=== PATIENT | male | born 1965 | race Caucasian/White ===

== ENCOUNTER 2019-07-27 08:52 | Emergency (ER) | payer BC, OTHER ==
[~2019-07-27] VITALS: Ht 177.8 cm; Wt 86.3 kg
[2019-07-27 09:42] LABS: BASOPHILS % (AUTO) 1 % (0-10); EOSINOPHILS # (AUTO) 0.3 10^3/uL (0.0-0.3); EOSINOPHILS % (AUTO) 5 % (0-10); HEMATOCRIT 45 % (40-54); HEMOGLOBIN 15.8 G/DL (13.3-17.7); LYMPHOCYTES # (AUTO) 1.6 X 10^3 (1.0-4.0); LYMPHOCYTES % (AUTO) 28 % (12-44); MEAN CORPUSCULAR HEMOGLOBIN 32 PG (25-34); MEAN CORPUSCULAR HGB CONC 35 G/DL (32-36); MEAN CORPUSCULAR VOLUME 91 FL (80-99); MEAN PLATELET VOLUME 9.1 FL (7.4-10.4); MONOCYTES # (AUTO) 0.4 X 10^3 (0.0-1.0); MONOCYTES % (AUTO) 7 % (0-12); NEUTROPHILS # (AUTO) 3.4 X 10^3 (1.8-7.8); NEUTROPHILS % (AUTO) 60 % (42-75); PLATELET COUNT 218 10^3/uL (130-400); WHITE BLOOD COUNT 5.6 10^3/uL (4.3-11.0)
--- NOTE | 2019-07-27 09:48 | ED General ---
General Chief Complaint: Dizziness/Syncope Stated Complaint: DIZZINESS; NAUSEA Nursing Triage Note: Patient arrived by private vehicle with chief complaint of dizziness. Pt was alert, oriented and ambulatory at arrival (a little unsteady on his feet, but was able to walk to room 4). Pt was in the [employer] line and couldn't keep eyes open. Patient wanted to make sure he wasn't having a heart attack. Nursing Sepsis Screen: No Definite Risk History of Present Illness Date Seen by Provider: Jul 27, 2019 Time Seen by Provider: 09:43 Initial Comments 53-year-old male says he was sitting in his car when he had acute onset of dizziness says he was very sleepy and could barely keep his eyes open no vertigo he never had syncope but felt near syncopal he drove himself to the ER did have an unsteady gait into building no pain anywhere no focal weakness no prior such episodes has history of significant brain injury 6 years ago has never had a seizure Allergies and Home Medications Allergies Coded Allergies: Penicillins (Verified Allergy, Unknown, unknown, 07/27/19) Patient Home Medication List Home Medication List Reviewed: Yes Review of Systems Review of Systems Constitutional: dizziness; No fever EENTM: No hearing loss, No blurred vision, No nose congestion Respiratory: no symptoms reported Cardiovascular: no symptoms reported Gastrointestinal: no symptoms reported Genitourinary: no symptoms reported Musculoskeletal: no symptoms reported Skin: no symptoms reported Past Ojixzvx-Ozkbui-Hjwjaa Hx Patient Social History Alcohol Use: Denies Use Recreational Drug Use: No Smoking Status: Never a Smoker 2nd Hand Smoke Exposure: No Recent Foreign Travel: No Contact w/Someone Who Travel: No Recent Infectious Disease Expo: No Recent Hopitalizations: No Physical Abuse: No Sexual Abuse: No Mistreated: No Fear: No Seasonal Allergies Seasonal Allergies: No Past Medical History Surgeries: No Respiratory: No Cardiac: No Neurological: Yes Traumatic Brain Injury Genitourinary: No Gastrointestinal: No Musculoskeletal: Yes (2015 fell broken pelvis and ribs) Endocrine: No HEENT: No Cancer: No Psychosocial: No Integumentary: No Blood Disorders: No Physical Exam Vital Signs Vital Signs - First Documented 07/27/19 08:56 Temp 36.1 Pulse 96 Resp 18 B/P (MAP) 114/74 (87) Pulse Ox 97 O2 Delivery Room Air Capillary Refill : Less Than 3 Seconds Height, Weight, BMI Height: '" Weight: lbs. oz. kg; 27.00 BMI Method: General Appearance: No Apparent Distress, WD/WN Eyes: Bilateral Eye PERRL, Bilateral Eye EOMI HEENT: PERRL/EOMI, Other (no nystagmus) Neck: Supple; No Carotid Bruit Respiratory: Lungs Clear, Normal Breath Sounds Cardiovascular: Regular Rate, Rhythm Gastrointestinal: Normal Bowel Sounds, Non Tender, Soft Neurologic/Psychiatric: Alert, Oriented x3, No Motor/Sensory Deficits, engine repairer production II- XII Norm as Tested; No Motor Weakness, No Sensory Deficit Progress/Results/Core Measures Suspected Sepsis Recent Fever Within 48 Hours: No Infection Criteria Present: None New/Unexplained Altered Menta: No Sepsis Screen: No Definite Risk SIRS Temperature: Pulse: 96 Respiratory Rate: 18 Laboratory Tests 07/27/19 09:20: White Blood Count 5.6 Blood Pressure 114 /74 Mean: 87 Laboratory Tests 07/27/19 09:20: Creatinine 0.74, Platelet Count 218, Total Bilirubin 0.5 Results/Orders Lab Results Laboratory Tests Test 07/27/19 09:20 Range/Units White Blood Count 5.6 4.3-11.0 10^3/uL Red Blood Count 4.93 4.35-5.85 10^6/uL Hemoglobin 15.8 13.3-17.7 G/DL Hematocrit 45 40-54 % Mean Corpuscular Volume 91 80-99 FL Mean Corpuscular Hemoglobin 32 25-34 PG Mean Corpuscular Hemoglobin Concent 35 32-36 G/DL Red Cell Distribution Width 12.0 10.0-14.5 % Platelet Count 218 130-400 10^3/uL Mean Platelet Volume 9.1 7.4-10.4 FL Neutrophils (%) (Auto) 60 42-75 % Lymphocytes (%) (Auto) 28 12-44 % Monocytes (%) (Auto) 7 0-12 % Eosinophils (%) (Auto) 5 0-10 % Basophils (%) (Auto) 1 0-10 % Neutrophils # (Auto) 3.4 1.8-7.8 X 10^3 Lymphocytes # (Auto) 1.6 1.0-4.0 X 10^3 Monocytes # (Auto) 0.4 0.0-1.0 X 10^3 Eosinophils # (Auto) 0.3 0.0-0.3 10^3/uL Basophils # (Auto) 0.0 0.0-0.1 10^3/uL Sodium Level 141 135-145 MMOL/L Potassium Level 4.2 3.6-5.0 MMOL/L Chloride Level 105 98-107 MMOL/L Carbon Dioxide Level 23 21-32 MMOL/L Anion Gap 13 5-14 MMOL/L Blood Urea Nitrogen 11 7-18 MG/DL Creatinine 0.74 0.60-1.30 MG/DL Estimat Glomerular Filtration Rate > 60 BUN/Creatinine Ratio 15 Glucose Level 120 H 70-105 MG/DL Calcium Level 9.2 8.5-10.1 MG/DL Corrected Calcium 8.8 8.5-10.1 MG/DL Total Bilirubin 0.5 0.1-1.0 MG/DL Aspartate Amino Transf (AST/SGOT) 25 5-34 U/L Alanine Aminotransferase (ALT/SGPT) 27 0-55 U/L Alkaline Phosphatase 55 40-136 U/L Troponin I < 0.30 <0.30 NG/ML Total Protein 7.4 6.4-8.2 GM/DL Albumin 4.5 3.2-4.5 GM/DL Micro Results Microbiology 07/27/19 Influenza Types A,B Antigen (CHRISTIAN) - Final, Complete My Orders Orders - ANUJA ALFORD MD Ekg Tracing (07/27/19 09:17) Iv Heplock-Insert (Order) (07/27/19 09:17) Influenza A And B Antigens (07/27/19 09:17) Cbc With Automated Diff (07/27/19 09:17) Comprehensive Metabolic Panel (07/27/19 09:17) Urinalysis (07/27/19 09:17) Ct Head Wo (07/27/19 09:28) Chest Pa/Lat (2 View) (07/27/19 09:28) Sap Data Analyst (07/27/19 09:28) Troponin I Fs (07/27/19 10:08) Meclizine Tablet (Antivert Tablet) (07/27/19 10:45) Medications Given in ED Current Medications Medications Dose Ordered Sig/Giovanna Route Start Time Stop Time Status Last Admin Dose Admin Meclizine HCl 25 mg ONCE ONCE PO 07/27/19 10:45 07/27/19 10:46 DC 07/27/19 10:45 25 MG Vital Signs/I&O 07/27/19 08:56 Temp 36.1 Pulse 96 Resp 18 B/P (MAP) 114/74 (87) Pulse Ox 97 O2 Delivery Room Air Capillary Refill : Less Than 3 Seconds Blood Pressure Mean: 87 POS Progress Note : Progress Note CBC is normal CMP normal influenza neg chest x-ray normal CT head shows nothing acute UA - trop - neg ECG EKG : Comment EKG shows a sinus rhythm at 68 with no acute changes Departure Impression Primary Impression: Dizziness Disposition: 01 HOME, SELF-CARE Condition: Stable Departure-Patient Inst. Decision time for Depature: 10:50 Patient Instructions: Vertigo (a Type of Dizziness) (DC) Scripts Meclizine HCl (Meclizine HCl) 25 Mg Tablet 25 MG PO BID PRN PRN for DIZZINESS, #10 TAB Prov: ANUJA ALFORD MD 07/27/19 ANUJA ALFORD MD Jul 27, 2019 09:47 POS
[2019-07-27 09:56] LABS: ALKALINE PHOSPHATASE 55 U/L (40-136); BILIRUBIN,TOTAL 0.5 MG/DL (0.1-1.0); BUN/CREATININE RATIO 15; CALCIUM 9.2 MG/DL (8.5-10.1); CARBON DIOXIDE 23 MMOL/L (21-32); CHLORIDE 105 MMOL/L (98-107); CREATININE SERUM 0.74 MG/DL (0.60-1.30); GFR ESTIMATED > 60; GLUCOSE 120 MG/DL (70-105); POTASSIUM 4.2 MMOL/L (3.6-5.0); SODIUM 141 MMOL/L (135-145)
[2019-07-27 09:57] LABS: ALANINE AMINOTRANSFERASE 27 U/L (0-55); ALBUMIN 4.5 GM/DL (3.2-4.5); TOTAL PROTEIN 7.4 GM/DL (6.4-8.2)
--- NOTE | 2019-07-27 10:09 | Diagnostic Imaging Report ---
PATIENT HISTORY: Dizziness, nausea. TECHNIQUE: 2 views of the chest COMPARISON: None FINDINGS: Lung volumes are normal. No focal consolidation is seen. There is no pleural effusion or pneumothorax. The cardiac silhouette is normal in size and contour. There are old left-sided rib fractures. IMPRESSION: No acute pulmonary abnormality seen. Dictated by: Dictated on workstation # [id number]
--- NOTE | 2019-07-27 10:17 | Diagnostic Imaging Report ---
PROCEDURE: CT head without contrast. TECHNIQUE: Multiple contiguous axial images were obtained through the brain without the use of intravenous contrast. Auto Exposure Controls were utilized during the CT exam to meet ALARA standards for radiation dose reduction. INDICATION: Dizziness. No prior studies are available for comparison. The ventricles and sulci are somewhat prominent for the patient's age. This is likely owing to mild atrophy. No sulcal effacement or midline shift is detected. No acute intra-axial or extra-axial hemorrhage is detected. The cisterns are patent. The visualized paranasal sinuses demonstrate some mucosal thickening involving multiple ethmoid air cells. IMPRESSION: 1. Mild cerebral atrophy. 2. No acute intracranial process is detected. Dictated by: Dictated on workstation # [id number]
[2019-07-27] MEDS ORDERED: MECLIZINE 25 MG (ANTIVERT) TAB PO ONE (10:45)
[2019-07-27] MEDS ORDERED: MECL-106 PO (10:55)
[2019-07-27 11:10] VITALS: BP 135/82
--- OUTSIDE RECORDS SUMMARY | 2019-08-19 23:33 | XMS REPORT | Continuity of Care Document ---
Author Organization Unknown POS Address Unknown SP Phone Unavailable SP Allergies Active Description Code Type Severity POS Reaction Onset Reported/Identified POS to Patient Clinical Status POS Yes Penicillins [id number] Drug Aller gy SP unknown 07/27/2019 SP Medications There is no data. Problems Date Dx Coded Attending Type Code POS Diagnosed By POS 07/31/2019 ANUJA ALFORD MD, Ot R42 SP AND GIDDINESS SP 07/31/2019 ANUJA ALFORD MD Ot Z87.820 SP PERSONAL HISTORY OF TRAUMATIC BRAIN INJU SP 07/31/2019 ANUJA ALFORD MD, Ot Z88. 0 SP STATUS TO PENICILLIN SP Procedures There is no data. Results Test Result Range POS Complete blood count (CBC) with automate d white blood cell (WBC) differential - POS 09:20 Blood leukocytes automated count (number/volume) 5.6 10*3/uL POS 4.3-11.0 SP Blood erythrocytes automated count (number/volume) 4.93 10*6/uL SP 4.35-5.85 SP Venous blood hemoglobin measurement (mass/volume) 15.8 g/dL SP17.7 Blood hematocrit (volume fraction) 45 % 40-54 SP Automated erythrocyte mean corpuscular volume 91 [ foz_us] SP99 Automated erythrocyte mean corpuscular h emoglobin (mass per erythrocyte) SP 32 pg 25-34 SP Automated erythrocyte mean corpuscular h emoglobin concentration measurement SP 35 g/dL 32-36 SP Automated erythrocyte distribution width ratio 12. 0 % 10.0- SP Automated blood platelet count (count/volume) 218 10*3/uL SP400 Automated blood platelet mean volume measurement 9.1 [foz_us] SP 7.4-10.4 SP Automated blood neutrophils/100 leukocytes 60 % 42-75 SP Automated blood lymphocytes/100 leukocytes 28 % 12-44 SP Blood monocytes/100 leukocytes 7 % 0-12 SP Automated blood eosinophils/100 leukocytes 5 % 0-10 SP Automated blood basophils/100 leukocytes 1 % 0-10 SP Blood neutrophils automated count (number/volume) 3.4 10*3 SP7.8 Blood lymphocytes automated count (number/volume) 1.6 10*3 SP4.0 Blood monocytes automated count (number/volume) 0. 4 10*3 SP1.0 Automated eosinophil count 0.3 10*3/uL 0 .0-0.3 SP Automated blood basophil count (count/volume) 0.0 10*3/uL SP0.1 Comprehensive metabolic panel - 07/27/19 09:20 POS Serum or plasma sodium measurement (moles/volume) 141 mmol/L SP 135-145 SP Serum or plasma potassium measurement (moles/volume) 4.2 mmol/L SP 3.6-5.0 SP Serum or plasma chloride measurement (moles/volume) 105 mmol/L SP 98-107 SP Carbon dioxide 23 mmol/L 21-32 SP Serum or plasma anion gap determination (moles/volume) 13 mmol/L SP 5-14 SP Serum or plasma urea nitrogen measurement (mass/volume ) 11 mg/dL SP 7-18 SP Serum or plasma creatinine measurement (mass/volume) 0.74 mg/dL SP 0.60-1.30 SP Serum or plasma urea nitrogen/creatinine mass ratio 15 NRG SP Serum or plasma creatinine measurement w ith calculation of estimated glomerular SP rate > NRG SP Serum or plasma glucose measurement (mass/volume) 120 mg/dL SP105 Serum or plasma calcium measurement (mass/volume) 9.2 mg/dL SP10.1 Serum or plasma total bilirubin measurement (mass/volu me) 0.5 mg/dL SP 0.1-1.0 SP Serum or plasma alkaline phosphatase flakito surement (enzymatic activity/volume) SP 55 U/L 40-136 SP Serum or plasma aspartate aminotransfera se measurement (enzymatic SP 25 U/L 5-34 SP Serum or plasma alanine aminotransferase measurement (enzymatic activity/volume) SP 27 U/L 0-55 SP Serum or plasma protein measurement (mass/volume) 7.4 g/dL SP8.2 Serum or plasma albumin measurement (mass/volume) 4.5 g/dL SP4.5 CALCIUM CORRECTED 8.8 mg/dL 8.5-10.1 SP TROPONIN I FS - 07/27/19 09:20 POS TROPONIN I FS < 0.30 <0.30 SP Influenza virus A and B antigen detectio n - 07/27/19 09:21 POS FLU RESULT NEGATIVE FOR INFLUENZA A AND B ANTIGENS BY IA SP Encounters ACCT No. Visit Date/Time Discharge Status POS Pt. Type Provider Facility Loc./Un it POS Complaint POS [id number] 07/27/2019 08:55:00 019 11:10:00 SP DIS Outpatient ROCÍO SESAY, ANUJA Matt Nayeli ZEUS - [facility] FS DIZZINESS; NAUSEA SP
== END 2019-07-27 11:10 | disposition home or self-care (01) ==
LOC: ER FS 08:55
DX: R42 Dizziness and giddiness (principal); Z88.0 Allergy status to penicillin; Z87.820 Personal history of traumatic brain injury
CPT/HCPCS: 36415; 70450; 71046; 80053; 84484; 85025; 87804; 93005; 93041

== ENCOUNTER → 2020-07-17 | Outpatient (CLI) | payer BC ==
[~2020-07-17] MED LIST: MECL-149 PO
--- NOTE | 2020-07-17 17:27 | Diagnostic Imaging Report ---
INDICATION: Family history of pancreatic cancer, abnormal lab values. TECHNIQUE: MRI obtained of the abdomen without IV contrast with MRCP protocol, with 3D MRCP reconstructions. FINDINGS: The liver shows no focal lesions. Gallbladder appears unremarkable. The spleen appears unremarkable. The adrenals and kidneys appear normal. Images of the pancreas show no discrete focal mass lesion. MRCP reconstructions demonstrate the biliary tree to be normal in caliber with no filling defects. There is mild prominence of the pancreatic duct centrally with normal caliber of the pancreatic duct distally. This may be due to normal variant. IMPRESSION: No focal pancreatic lesion. There is no biliary dilatation. There is mild prominence of the pancreatic duct and pancreatic head, with normal caliber in the remainder of the pancreas. This may be due to normal variant. Consider follow-up, as clinically warranted. Dictated by: Dictated on workstation # [id number]
== END ==
LOC: RAD 07-14 15:30
PROVIDERS: ATTEND Family Medicine
DX: K86.89 Other specified diseases of pancreas (principal); Z80.0 Family history of malignant neoplasm of digestive organs
CPT/HCPCS: 74181